=== PATIENT | male | born 1975 | race Hispanic/Latino ===

== ENCOUNTER → 2017-03-14 | Outpatient (CLI) | payer OTHER ==
[~2017-03-14] MED LIST: METHACHOLINE KIT (J7674) INH ONE
--- NOTE | 2017-03-14 08:10 | PFTRPT ---
Tech: Radha JONES RRT Age: 41 Sex: Male Race: Height: 68.00 Inches Weight: 210.00 Lbs BSA: 2.09 Diagnosis: R06.02 METHACHOLINE CHALLENGE REPORT ORDERING PROVIDER: MICHAELA Hahn DATE OF SERVICE: 03/14/17 INTERPRETATION: The study was of excellent technical quality. Under protocol, methacholine was administered. Even after a total dose of 25 mg (188.875 CDUs) , no provocation dose was ever achieved. Flow rates did return to baseline post bronchodilator administration. IMPRESSION: Negative methacholine challenge study. MTDD
== END ==
LOC: M CARPUL 07:13
PROVIDERS: ATTEND Nurse Practitioner Adult Health
DX: R06.02 Shortness of breath (principal)